=== PATIENT | female | born 1945 | race Asian ===

== ENCOUNTER → 2019-03-22 | Outpatient (CLI) | payer MEDICARE, OTHER ==
[~2019-03-22] VITALS: Ht 157.5 cm; Wt 74.8 kg
[~2019-03-22] MED LIST: ADENOSINE 63 MG in GIVE UN-DILUTED 0 ML IV STA
== END | disposition home or self-care (01) ==
LOC: XY 07:39
PROVIDERS: ATTEND Internal Medicine
DX: I10 Essential (primary) hypertension (principal)
CPT/HCPCS: 78452; 93017; A9500; J0153

== ENCOUNTER → 2019-04-05 | Outpatient (CLI) | payer MEDICARE, OTHER | END | disposition home or self-care (01) | LOC: XYW 08:12 | PROVIDERS: ATTEND Internal Medicine | DX: I10 Essential (primary) hypertension (principal) | CPT/HCPCS: 93306 ==

== ENCOUNTER → 2019-06-16 | Outpatient (CLI) | payer MEDICARE, OTHER | END | disposition home or self-care (01) | LOC: LAB 12:03 | DX: L30.9 Dermatitis, unspecified (principal); L29.8 Other pruritus | CPT/HCPCS: 82785 ==

== ENCOUNTER → 2021-05-20 | Outpatient (CLI) | payer MEDICARE, OTHER ==
[2021-05-20 08:32] LABS: Basophils # (auto) 0 10 ^3/uL (0-0.2); Basophils % (auto) 0.9 % (0.0-2.0); Eosinophils # (auto) 0.1 10 ^3/uL (0-0.8); Eosinophils % (auto) 1.6 % (0.0-7.0); Hemoglobin 14.5 g/dL (12.2-16.2); Lymphocytes # (auto) 1.2 10 ^3/uL (0.4-5.4); Lymphocytes % (auto) 22.9 % (10.0-50.0); Mean Corpuscular Hemoglobin 30.7 pg (28.0-32.0); Mean Corpuscular Hgb Conc. 33.7 g/dL (32.0-36.0); Mean Corpuscular Volume 91.1 fL (80.0-100.0); Monocytes # (auto) 0.4 10 ^3/uL (0-1.3); Monocytes % (auto) 7.8 % (0.0-12.0); Neutrophils # (auto) 3.6 10 ^3/uL (1.6-8.6); Neutrophils % (auto) 66.8 % (37.0-80.0); Nucleated Red Blood Cells % 0.1 %; Red Blood Cells 4.72 10^6/uL (4.0-5.20); Red Cell Distribution Width 13.7 % (11.8-14.3); White Blood Cell 5.3 10^3/uL (4.4-10.8)
[2021-05-20 09:06] LABS: Albumin 3.3 g/dL (3.4-5.0); Calcium 8.9 mg/dL (8.5-10.1)
[2021-05-20 09:11] LABS: BUN/Creatinine Ratio 19.7; Bilirubin, Total 0.4 mg/dL (0.2-1.0); Total Protein 7.2 g/dL (6.4-8.2)
== END | disposition home or self-care (01) ==
LOC: LAB 08:16
PROVIDERS: ATTEND Nurse Practitioner Family
DX: I10 Essential (primary) hypertension (principal); E55.9 Vitamin D deficiency, unspecified; J30.2 Other seasonal allergic rhinitis; R53.83 Other fatigue
CPT/HCPCS: 36415; 80053; 80061; 82306; 84443; 85025

== ENCOUNTER → 2022-05-25 | Outpatient (CLI) | payer MEDICARE, OTHER ==
[2022-05-25 07:45] LABS: Basophils # (auto) 0.1 10 ^3/uL (0-0.2); Basophils % (auto) 1.1 % (0.0-2.0); Eosinophils # (auto) 0.1 10 ^3/uL (0-0.8); Eosinophils % (auto) 1.6 % (0.0-7.0); Hematocrit 41.7 % (36.0-46.0); Hemoglobin 14.1 g/dL (12.2-16.2); Lymphocytes # (auto) 1.3 10 ^3/uL (0.4-5.4); Lymphocytes % (auto) 24.9 % (10.0-50.0); Mean Corpuscular Hemoglobin 30.7 pg (28.0-32.0); Mean Corpuscular Hgb Conc. 33.8 g/dL (32.0-36.0); Mean Corpuscular Volume 90.6 fL (80.0-100.0); Monocytes # (auto) 0.4 10 ^3/uL (0-1.3); Monocytes % (auto) 8.3 % (0.0-12.0); Neutrophils # (auto) 3.3 10 ^3/uL (1.6-8.6); Neutrophils % (auto) 64.1 % (37.0-80.0); Red Blood Cells 4.61 10^6/uL (4.0-5.20); Red Cell Distribution Width 13.8 % (11.8-14.3); White Blood Cell 5.1 10^3/uL (4.4-10.8)
[2022-05-25 08:55] LABS: Potassium 3.8 mmol/L (3.5-5.1)
[2022-05-25 09:09] LABS: Albumin 3.7 g/dL (3.4-5.0); BUN/Creatinine Ratio 21.5; Bilirubin, Total 0.6 mg/dL (0.2-1.0); Calcium 8.9 mg/dL (8.5-10.1); Total Protein 7.3 g/dL (6.4-8.2)
== END | disposition home or self-care (01) ==
LOC: LAB 07:29
PROVIDERS: ATTEND Nurse Practitioner Family
DX: E55.9 Vitamin D deficiency, unspecified (principal); E78.5 Hyperlipidemia, unspecified; I10 Essential (primary) hypertension; Z00.00 Encounter for general adult medical examination without abnormal findings
CPT/HCPCS: 36415; 80053; 80061; 84443; 85025

== ENCOUNTER → 2022-05-26 | Outpatient (CLI) | payer MEDICARE, OTHER | END | disposition home or self-care (01) | LOC: LAB 15:14 | PROVIDERS: ATTEND Nurse Practitioner Family | DX: E78.5 Hyperlipidemia, unspecified (principal); E55.9 Vitamin D deficiency, unspecified; I10 Essential (primary) hypertension; Z00.00 Encounter for general adult medical examination without abnormal findings | CPT/HCPCS: 82274 ==

== ENCOUNTER 2022-07-21 10:13 | Inpatient (IN) | payer MEDICARE, OTHER ==
[~2022-07-21] VITALS: Ht 157.5 cm; Wt 78.1 kg
[2022-07-21] MEDS ORDERED: hydrALAZINE HCL 20 MG/ML VL IV ONE (11:00)
[2022-07-21 11:46] LABS: Basophils # (auto) 0 10 ^3/uL (0-0.2); Basophils % (auto) 0.9 % (0.0-2.0); Eosinophils # (auto) 0.1 10 ^3/uL (0-0.8); Hematocrit 43.2 % (36.0-46.0); Hemoglobin 14.4 g/dL (12.2-16.2); Lymphocytes # (auto) 1.1 10 ^3/uL (0.4-5.4); Lymphocytes % (auto) 21.9 % (10.0-50.0); Mean Corpuscular Hemoglobin 29.8 pg (28.0-32.0); Mean Corpuscular Hgb Conc. 33.4 g/dL (32.0-36.0); Mean Corpuscular Volume 89.1 fL (80.0-100.0); Monocytes # (auto) 0.4 10 ^3/uL (0-1.3); Monocytes % (auto) 7.1 % (0.0-12.0); Neutrophils # (auto) 3.6 10 ^3/uL (1.6-8.6); Neutrophils % (auto) 69.1 % (37.0-80.0); Red Blood Cells 4.85 10^6/uL (4.0-5.20); Red Cell Distribution Width 13.9 % (11.8-14.3); White Blood Cell 5.2 10^3/uL (4.4-10.8)
[2022-07-21 11:52] LABS: Urine Bacteria FEW /hpf (None Seen); Urine Blood Negative /uL (Negative); Urine Hyaline Cast FEW /lpf (0 - 2); Urine Specific Gravity 1.007 (1.001-1.035); Urine WBC <1 /hpf (0 - 5)
[2022-07-21 11:53] LABS: Albumin 3.4 g/dL (3.4-5.0); Calcium 8.3 mg/dL (8.5-10.1)
[2022-07-21 11:56] LABS: BUN/Creatinine Ratio 20.7; Bilirubin, Total 0.7 mg/dL (0.2-1.0)
[2022-07-21] MEDS ORDERED: NITROGLYCERIN 0.4 MG SL TAB SL PRN (12:45)
[2022-07-21] MEDS ORDERED: MORPHINE SULFATE INJ 2 MG/ml SYRG IV PRN (12:45)
[2022-07-21] MEDS: PANTOPRAZOLE 40 MG/10 ML VIAL INJ IV ONE ×2 (12:45→13:37)
[2022-07-21] MEDS ORDERED: SODIUM CHLORIDE 0.9% 1,000 ML IV SCH (12:45)
[2022-07-21] MEDS ORDERED: LOSA-39 PO (13:24)
[2022-07-21] MEDS ORDERED: EST0625T PO (13:24)
[2022-07-21] MEDS ORDERED: HYDR25TA5 PO (13:24)
[2022-07-21] MEDS ORDERED: LISI-716 PO (13:24)
[2022-07-21] MEDS ORDERED: ROSU20TA14 PO (13:26)
[2022-07-21] MEDS ORDERED: POTA1TAB4 PO (13:26)
[2022-07-21] MEDS ORDERED: ENOXAPARIN SOD 40 MG/0.4 ML SYRINGE SC SCH (15:00)
[2022-07-21] MEDS ORDERED: LABETALOL HCL 5 MG/ML 4ML SYRINGE IV ONE ×2 (15:00)
[2022-07-21] MEDS: LOSARTAN POTASSIUM 50 MG TAB PO SCH (15:37)
[2022-07-21] MEDS: HCTZ 25 MG TAB PO SCH (15:37)
[2022-07-21] MEDS ORDERED: ASPirin 81 mg TAB PO ONE (16:30)
[2022-07-21] MEDS ORDERED: hydrALAZINE HCL 20 MG/ML VL IV SCH (18:00)
[2022-07-21] MEDS ORDERED: hydrALAZINE HCL 20 MG/ML VL IV PRN (18:30)
[2022-07-21] MEDS: ACETAMINOPHEN 325 MG TAB PO PRN (20:11)
[2022-07-21 22:00] VITALS: BP 155/45
[2022-07-21] MEDS ORDERED: ENOXAPARIN SOD 80 MG/0.8ML SYRINGE SC SCH (22:00)
[2022-07-21] MEDS: ATORVASTATIN 20 MG TAB PO SCH (22:10)
[2022-07-21] MEDS: METOPROLOL TARTRATE 25 MG TAB PO SCH (22:11)
[2022-07-21 23:36] VITALS: BP_SYST 115; BP_DIAS 44; BP_DIAS 54
[2022-07-22 05:00] VITALS: BP 148/104
[2022-07-22 05:43] LABS: Basophils # (auto) 0 10 ^3/uL (0-0.2); Basophils % (auto) 0.6 % (0.0-2.0); Eosinophils # (auto) 0.2 10 ^3/uL (0-0.8); Eosinophils % (auto) 2.3 % (0.0-7.0); Hematocrit 42.5 % (36.0-46.0); Hemoglobin 14.2 g/dL (12.2-16.2); Lymphocytes # (auto) 1.6 10 ^3/uL (0.4-5.4); Lymphocytes % (auto) 21.5 % (10.0-50.0); Mean Corpuscular Hemoglobin 29.9 pg (28.0-32.0); Mean Corpuscular Hgb Conc. 33.3 g/dL (32.0-36.0); Mean Corpuscular Volume 89.7 fL (80.0-100.0); Monocytes # (auto) 0.6 10 ^3/uL (0-1.3); Monocytes % (auto) 7.7 % (0.0-12.0); Neutrophils # (auto) 5.2 10 ^3/uL (1.6-8.6); Neutrophils % (auto) 67.9 % (37.0-80.0); Nucleated Red Blood Cells % 0.1 %; Red Blood Cells 4.74 10^6/uL (4.0-5.20); Red Cell Distribution Width 13.7 % (11.8-14.3); White Blood Cell 7.6 10^3/uL (4.4-10.8)
[2022-07-22 05:55] LABS: Potassium 3.2 mmol/L (3.5-5.1)
[2022-07-22 06:10] LABS: Albumin 3.3 g/dL (3.4-5.0); BUN/Creatinine Ratio 13.6; Calcium 8.6 mg/dL (8.5-10.1); Magnesium 2.2 mg/dL (1.6-2.6); Total Protein 6.6 g/dL (6.4-8.2)
[2022-07-22] MEDS: ACETAMINOPHEN 325 MG TAB PO PRN (06:38)
[2022-07-22] MEDS ORDERED: ADENOSINE 67 MG in GIVE UN-DILUTED 0 ML IV STA (07:12)
[2022-07-22 08:00] VITALS: BP 156/97
[2022-07-22 08:35] VITALS: BP 156/70
[2022-07-22] MEDS ORDERED: LOSARTAN POTASSIUM 50 MG TAB PO SCH (10:00)
[2022-07-22] MEDS ORDERED: ENOXAPARIN SOD 40 MG/0.4 ML SYRINGE SC SCH (10:00)
[2022-07-22] MEDS ORDERED: HCTZ 25 MG TAB PO SCH (10:00)
[2022-07-22] MEDS ORDERED: PANTOPRAZOLE 40 MG/10 ML VIAL INJ IV SCH (10:00)
[2022-07-22] MEDS ORDERED: POTASSIUM CHL 20 Meq TABLET PO ONE (11:45)
[2022-07-22] MEDS: ASPirin 81 mg TAB PO SCH (11:49)
[2022-07-22] MEDS: METOPROLOL TARTRATE 25 MG TAB PO SCH ×2 (11:50→21:34)
[2022-07-22] MEDS: LOSARTAN POTASSIUM 50 MG TAB PO SCH (11:50)
[2022-07-22] MEDS: HCTZ 25 MG TAB PO SCH (11:50)
[2022-07-22 12:30] VITALS: BP 146/78
[2022-07-22 16:35] VITALS: BP 175/71
[2022-07-22] MEDS: cloNIDine HCL 0.1 MG TAB PO PRN (18:23)
[2022-07-22] MEDS: ATORVASTATIN 20 MG TAB PO SCH (21:39)
[2022-07-22 22:00] VITALS: BP 166/61
[2022-07-22] MEDS ORDERED: ATORVASTATIN 20 MG TAB PO SCH (22:00)
[2022-07-23] MEDS: cloNIDine HCL 0.1 MG TAB PO PRN (04:38)
[2022-07-23 04:46] VITALS: BP 164/61
[2022-07-23 05:39] LABS: BUN/Creatinine Ratio 17.8; Calcium 8.7 mg/dL (8.5-10.1); Potassium 3.3 mmol/L (3.5-5.1)
[2022-07-23 08:58] VITALS: BP 140/66
[2022-07-23 09:05] VITALS: BP 151/72
[2022-07-23] MEDS: METOPROLOL TARTRATE 25 MG TAB PO SCH (09:09)
[2022-07-23] MEDS: LOSARTAN POTASSIUM 50 MG TAB PO SCH (09:10)
[2022-07-23] MEDS: ASPirin 81 mg TAB PO SCH (09:10)
[2022-07-23] MEDS: HCTZ 25 MG TAB PO SCH (09:11)
[2022-07-23] MEDS ORDERED: POTASSIUM CHL 20 Meq TABLET PO ONE (11:15)
[2022-07-23 13:19] VITALS: BP 138/67
[2022-07-23 17:51] VITALS: BP 149/66
[2022-07-23] MEDS: ATORVASTATIN 20 MG TAB PO SCH (21:22)
[2022-07-23] MEDS: cloNIDine HCL 0.1 MG TAB PO SCH (21:22)
[2022-07-23 22:00] VITALS: BP 149/68
[2022-07-24 05:00] VITALS: BP 133/63
[2022-07-24 06:38] LABS: Calcium 8.8 mg/dL (8.5-10.1)
[2022-07-24 06:39] LABS: BUN/Creatinine Ratio 23.9
[2022-07-24 09:00] VITALS: BP 150/60
[2022-07-24] MEDS: LOSARTAN POTASSIUM 50 MG TAB PO SCH (09:24)
[2022-07-24] MEDS: cloNIDine HCL 0.1 MG TAB PO SCH (09:25)
[2022-07-24] MEDS: HCTZ 25 MG TAB PO SCH (09:25)
[2022-07-24] MEDS: ASPirin 81 mg TAB PO SCH (09:25)
[2022-07-24] MEDS ORDERED: amLODIPine BESYLATE 5 MG TAB PO SCH (10:00)
[2022-07-24] MEDS ORDERED: HYDR25TA5 PO (11:55)
[2022-07-24] MEDS ORDERED: CLON0.1T PO (11:55)
[2022-07-24] MEDS ORDERED: AML5T PO (11:55)
[2022-07-24] MEDS ORDERED: LOSA-69 PO (11:55)
[2022-07-24 12:35] VITALS: BP 137/60
[2022-07-24 12:42] VITALS: BP 137/60
== END 2022-07-24 15:00 | disposition home or self-care (01) | DRG 282 ==
LOC: EDBD 10:13 → ER 10:13 → TELE 12:56 → TELE-WESTW 21:14
PROVIDERS: ADMIT Nurse Practitioner Family; ATTEND Internal Medicine
DX: I16.1 Hypertensive emergency (principal); I21.A1 Myocardial infarction type 2; E66.01 Morbid (severe) obesity due to excess calories; Z68.31 Body mass index [BMI] 31.0-31.9, adult; E78.5 Hyperlipidemia, unspecified; E87.6 Hypokalemia; E89.0 Postprocedural hypothyroidism; I10 Essential (primary) hypertension; Z79.899 Other long term (current) drug therapy; Z82.49 Family history of ischemic heart disease and other diseases of the circulatory system; Z83.3 Family history of diabetes mellitus; Z90.710 Acquired absence of both cervix and uterus; Z90.49 Acquired absence of other specified parts of digestive tract
CPT/HCPCS: 36415; 70450; 71045; 78452; 80048; 80053; 80061; 81001; 83735; 83880; 84443; 84484; 85025; 87426; 93005; 93017; 93306; 96361; 96372; 96374; 96375; 99291; C9113; G0378; J0153; J3490

== ENCOUNTER → 2023-01-11 | Outpatient (CLI) | payer MEDICARE, OTHER ==
[~2023-01-11] MED LIST changes: -ADENOSINE 63 MG in GIVE UN-DILUTED 0 ML IV STA; +AML5T PO; +CLON0.1T PO; +EST0625T PO; +HYDR25TA5 PO; +LOSA-39 PO; +LOSA-69 PO; +ROSU20TA14 PO
[2023-01-11 10:57] LABS: Cholesterol 134 mg/dL (< 200); HDL Cholesterol 53 mg/dL (40-59); LDL Cholesterol 72 mg/dL (< 100); Triglycerides 136 mg/dL (< 150)
== END | disposition home or self-care (01) ==
LOC: LAB 09:42
PROVIDERS: ATTEND Internal Medicine
DX: I10 Essential (primary) hypertension (principal); E78.5 Hyperlipidemia, unspecified
CPT/HCPCS: 36415; 80061

== ENCOUNTER → 2025-07-13 | Outpatient (CLI) | payer MEDICARE, OTHER ==
[~2025-07-13] MED LIST changes: +ACYC1TAB3 PO; +IBUP-1456 PO; -LOSA-39 PO; +LOSA-534 PO; +LOSA-535 PO; -LOSA-69 PO; +TRIA0.02 TOP
[2025-07-13 08:09] LABS: Alanine Aminotransferase 21.0 U/L (7-40); Albumin 4.2 g/dL (3.2-4.8); Alkaline Phosphatase 72.0 U/L (46-116); Total Protein 7.2 g/dL (5.7-8.2)
[2025-07-13 08:10] LABS: Bilirubin, Direct 0.2 mg/dL (<0.3); Bilirubin, Total 0.6 mg/dL (0.2-1.0); Cholesterol 138.0 mg/dL (< 200); HDL Cholesterol 51.0 mg/dL (40-59)
[2025-07-13 08:11] LABS: Triglycerides 182.0 mg/dL (< 150)
== END | disposition home or self-care (01) ==
LOC: LAB 07:26
PROVIDERS: ATTEND Family Medicine
DX: E78.5 Hyperlipidemia, unspecified (principal)
CPT/HCPCS: 36415; 80061; 80076